=== PATIENT | female | born 1965 | race Caucasian/White ===

== ENCOUNTER → 2017-01-23 | Outpatient (CLI) | payer BC ==
[~2017-01-23] MED LIST: AVAPRO150 MG PO; CLARITIN10 M2 PO; FLONASE 50 MCG/16 GM NOSE; HYDRODIURIL25 MG PO; SINGULAIR10 MG PO; [UNRECOGNIZED DRUG - OTHER] OPHTH
--- NOTE | 2017-01-23 10:00 | NUR ---
[facility]. Introduced self and role of nurse navigator. Nurse Navigator brochure given to patient with my contact information circled on back. Permission received for follow up call Thursday.
== END | disposition disaster alternative care site (69) ==
LOC: GPOC 01-22 09:00 → GBCOE 09:26 → GPOC 10:00
PROC: 0HBT3ZX Excision of Right Breast, Percutaneous Approach, Diagnostic (ICD-10-PCS; principal; 2017-01-23)
DX: R92.0 Mammographic microcalcification found on diagnostic imaging of breast (principal)
CPT/HCPCS: J7050